=== PATIENT | female | born 1955 | race Caucasian/White ===

== ENCOUNTER → 2017-02-27 | Outpatient (CLI) | payer OTHER ==
[~2017-02-27] MED LIST: ALBU90OI; ALBU90OI INH; CYCL10 PO; FLUO20; HORMONE; IBUP800; LEVFLO500 PO; META800 PO; METH5; METPRE4DP PO; NAPR500 PO; OXYACE5T PO; PRED10 PO; PRED20 PO; Percocet 5-3251 EACH PO; TRAM50 PO; TRAZ; TRAZ50; ZYPREXA
[2017-02-27 16:11] LABS: Appearance, Urine Clear (Clear); Bilirubin, Urine Neg (Neg); Blood, Urine Neg (Neg); Color, Urine Yellow (P-Yellow); Glucose Qualitative, Urine Neg (Neg); Ketones, Urine Neg (Neg); Leukocyte Esterase, Urine Neg (Neg); Nitrite, Urine Neg (Neg); Protein, Urine Neg (Neg); Urobilinogen, Urine NORM (Normal)
[2017-02-27 16:17] LABS: Specific Gravity, Urine 1.015 (1.003-1.022)
== END ==
LOC: LAB 16:03
PROVIDERS: Nurse Practitioner Family
DX: R30.0 Dysuria (principal)
CPT/HCPCS: 81003

== ENCOUNTER → 2017-03-31 | Outpatient (CLI) | payer OTHER ==
[2017-03-31 16:13] LABS: Appearance, Urine Clear (Clear); Bilirubin, Urine Neg (Neg); Blood, Urine Neg (Neg); Color, Urine Yellow (P-Yellow); Glucose Qualitative, Urine Neg (Neg); Ketones, Urine Neg (Neg); Leukocyte Esterase, Urine 1+ (Neg); Nitrite, Urine Neg (Neg); Protein, Urine 1+ (Neg); Specific Gravity, Urine 1.025 (1.003-1.022); Urobilinogen, Urine NORM (Normal)
[2017-03-31 16:39] LABS: Bacteria Few /hpf; Red Blood Cells, Urine 0-2 /hpf (0-2); Squamous Epithelial Cells Few /hpf (Few)
== END ==
LOC: LAB 13:37
PROVIDERS: Nurse Practitioner Family
DX: R30.0 Dysuria (principal)
CPT/HCPCS: 81001; 87086

== ENCOUNTER → 2017-05-01 | Outpatient (CLI) | payer OTHER ==
[2017-05-01 18:39] LABS: Appearance, Urine Clear (Clear); Bilirubin, Urine Neg (Neg); Blood, Urine Neg (Neg); Color, Urine Yellow (P-Yellow); Glucose Qualitative, Urine Neg (Neg); Ketones, Urine Neg (Neg); Leukocyte Esterase, Urine 1+ (Neg); Nitrite, Urine Neg (Neg); Protein, Urine Neg (Neg); Specific Gravity, Urine 1.015 (1.003-1.022); Urobilinogen, Urine NORM (Normal)
[2017-05-01 18:57] LABS: Bacteria Few /hpf; Red Blood Cells, Urine 0-2 /hpf (0-2); Squamous Epithelial Cells Few /hpf (Few)
== END ==
LOC: LAB 15:00
PROVIDERS: Nurse Practitioner Family
DX: R30.0 Dysuria (principal)
CPT/HCPCS: 81001; 87086

== ENCOUNTER → 2021-06-19 | Outpatient (CLI) | payer OTHER | END | disposition home or self-care (01) | LOC: LAB SHORT 15:43 | DX: N39.0 Urinary tract infection, site not specified (principal) | CPT/HCPCS: 87086 ==

== ENCOUNTER → 2021-11-21 | Outpatient (CLI) | payer OTHER | END | disposition home or self-care (01) | LOC: LAB SHORT 19:15 → LAB 19:15 | DX: N39.0 Urinary tract infection, site not specified (principal) | CPT/HCPCS: 87086 ==

== ENCOUNTER → 2022-01-06 | Outpatient (CLI) | payer OTHER | END | disposition home or self-care (01) | LOC: LAB SHORT 12:00 → LAB 12:00 | DX: R82.79 Other abnormal findings on microbiological examination of urine (principal) | CPT/HCPCS: 87086 ==

== ENCOUNTER → 2022-01-20 | Outpatient (CLI) | payer OTHER ==
[2022-01-21 09:48] LABS: Stool Occult Bld Immuno 1 Negative (NEGATIVE)
== END | disposition home or self-care (01) ==
LOC: LAB SHORT 11:11 → LAB 11:11
PROVIDERS: Family Medicine
DX: Z12.11 Encounter for screening for malignant neoplasm of colon (principal)
CPT/HCPCS: G0328

== ENCOUNTER → 2022-05-23 | Outpatient (CLI) | payer OTHER | END | disposition home or self-care (01) | LOC: LAB 15:17 → LAB SHORT 15:17 | DX: R30.0 Dysuria (principal) | CPT/HCPCS: 87077; 87086; 87186 ==

== ENCOUNTER → 2022-06-05 | Outpatient (CLI) | payer OTHER | END | disposition home or self-care (01) | LOC: LAB 10:50 → LAB SHORT 10:50 | DX: R30.0 Dysuria (principal) | CPT/HCPCS: 87077; 87086; 87186 ==

== ENCOUNTER 2024-02-04 06:41 | Day surgery (SDC) | payer OTHER ==
[~2024-02-04] VITALS: Ht 154.9 cm; Wt 60.0 kg
[2024-02-04] MEDS ORDERED: Lactated Ringer's 1,000 ML IV ONE ×2 (07:19→08:28)
[2024-02-04] MEDS ORDERED: propofoL 50 ML IV ONE (07:19)
[2024-02-04] MEDS ORDERED: ATROVENT HFA12.9 GM (07:38)
[2024-02-04] MEDS ORDERED: TIOT18 (07:44)
[2024-02-04] MEDS ORDERED: SPIRIVA RESPIMAT4 G3 (07:44)
[2024-02-04] MEDS ORDERED: NEURONTIN300 MG (07:45)
[2024-02-04] MEDS ORDERED: DICLOFENAC SODI50 GM (07:45)
[2024-02-04] MEDS ORDERED: CELE200 (07:47)
[2024-02-04] MEDS ORDERED: ESCI20 (07:48)
[2024-02-04] MEDS ORDERED: OMEP20ER (07:49)
[2024-02-04] MEDS ORDERED: LAMOTRIGINE25 M4 (07:49)
[2024-02-04] MEDS ORDERED: Vitamin C100 M1 (07:52)
[2024-02-04] MEDS ORDERED: TOCO1000 (07:52)
[2024-02-04] MEDS ORDERED: PYRI100 (07:53)
[2024-02-04] MEDS ORDERED: Vitamin B-12100 MCG (07:53)
[2024-02-04] MEDS ORDERED: PSEU120ER (07:54)
[2024-02-04] MEDS ORDERED: PROBIOTIC1 EA14 (07:54)
[2024-02-04] MEDS ORDERED: MELA3 (07:54)
[2024-02-04] MEDS ORDERED: CALCIUM 500 MG1 EAC2 (07:54)
[2024-02-04] MEDS ORDERED: FISH OIL 1,0001 EA10 (07:55)
[2024-02-04 09:54] VITALS: BP 136/76
== END 2024-02-04 09:45 | disposition home or self-care (01) ==
LOC: ORSCSDS 06:41
DX: K21.9 Gastro-esophageal reflux disease without esophagitis (principal); R13.10 Dysphagia, unspecified; R11.2 Nausea with vomiting, unspecified; K31.89 Other diseases of stomach and duodenum; J44.9 Chronic obstructive pulmonary disease, unspecified; F41.9 Anxiety disorder, unspecified; F32.A Depression, unspecified; Z79.899 Other long term (current) drug therapy; Z87.891 Personal history of nicotine dependence
CPT/HCPCS: 88305; 88342; C1726; J2704; J7120

== ENCOUNTER 2024-04-21 11:06 | Emergency (ER) | payer OTHER ==
[~2024-04-21] VITALS: Ht 157.5 cm; Wt 63.5 kg
[~2024-04-21 11:06] MED LIST changes: +ATROVENT HFA12.9 GM; +CALCIUM 500 MG1 EAC2; +CELE200; +DICLOFENAC SODI50 GM; +ESCI20; +FISH OIL 1,0001 EA10; +LAMOTRIGINE25 M4; +MELA3; +NEURONTIN300 MG; +OMEP20ER; +PROBIOTIC1 EA14; +PSEU120ER; +PYRI100; +SPIRIVA RESPIMAT4 G3; +TIOT18; +TOCO1000; +Vitamin B-12100 MCG; +Vitamin C100 M1
[2024-04-21 12:24] LABS: Albumin, Blood 3.3 g/dL (3.4-5.0); Albumin/Globulin Ratio 0.7 (0.8-1.8); Bilirubin, Total 0.2 mg/dL (0.1-1.0); Bun/Creatinine Ratio 22.9 (12.0-20.0); Creatinine, Blood 0.79 mg/dL (0.40-1.00); Potassium, Blood 4.4 mmol/L (3.5-5.5); Total Protein, Blood 8.3 g/dL (6.4-8.2)
[2024-04-21 12:27] VITALS: BP 163/88
[2024-04-21 12:39] LABS: Source, Urine Clean Catch
[2024-04-21 12:54] LABS: Appearance, Urine Clear (Clear); Bilirubin, Urine Neg (Neg); Blood, Urine Neg (Neg); Color, Urine Yellow (P-Yellow); Glucose Qualitative, Urine Neg (Neg); Ketones, Urine Neg (Neg); Leukocyte Esterase, Urine 2+ (Neg); Nitrite, Urine Neg (Neg); Protein, Urine Neg (Neg); Specific Gravity, Urine 1.015 (1.003-1.022); Urobilinogen, Urine NORM (Normal)
[2024-04-21 13:41] LABS: Red Blood Cells, Urine 0-2 /hpf (0-2)
[2024-04-21 13:42] LABS: Bacteria Few /hpf; Squamous Epithelial Cells Few /hpf (Few)
== END 2024-04-21 15:22 | disposition home or self-care (01) ==
LOC: ER 11:06
PROVIDERS: Student in an Organized Health Care Education/Training Program
DX: R07.89 Other chest pain (principal); J44.9 Chronic obstructive pulmonary disease, unspecified; K21.9 Gastro-esophageal reflux disease without esophagitis; Z87.891 Personal history of nicotine dependence; Z88.8 Allergy status to other drugs, medicaments and biological substances; Z79.1 Long term (current) use of non-steroidal anti-inflammatories (NSAID); Z79.899 Other long term (current) drug therapy
CPT/HCPCS: 71046; 80053; 81001; 83690; 83880; 84484; 87086; 93005; 93010; 93246; 99285-25